=== PATIENT | female | born 1970 ===

== ENCOUNTER 2017-07-26 19:26 | Emergency (ER) | payer OTHER ==
[2017-07-26 19:39] VITALS: BP 119/71; PULSE 82; RESP 18; TEMP 98.6; O2SAT 99
[2017-07-26 20:07] LABS: RBC URINE 66 /hpf (0-3); URINE BILIRUBIN NEGATIVE (NEGATIVE); URINE BLOOD 2+ (NEGATIVE); URINE COLOR Yellow (YELLOW); URINE GLUCOSE (UA) NORMAL (Normal); URINE KETONE NEGATIVE (NEGATIVE); URINE LEUKOCYTE ESTERASE 3+ Leu/uL (Negative); URINE PROTEIN 2+ mg/dL (NEGATIVE); URINE UROBILINOGEN NORMAL mg/dL (0.2-1.0); WBC URINE 1212 /hpf (0-5)
--- NOTE | 2017-07-26 21:27 | C.PDOC ---
History Of Present Illness Kayla Gomes is a 47 year old female, with a past medical history of hypertension, who presents to the emergency department complaining of dysuria, frequency, and urgency onset for since last night. Patient states it burgos during urination. She denies any hematuria, shortness of breath, nausea, vomit or diarrhea. No further medical complaints. PMD: Eliseo Schmidt Time Seen by Provider: 07/26/17 20:18 Chief Complaint (Nursing): Female Genitourinary History Per: Patient History/Exam Limitations: no limitations Onset/Duration Of Symptoms: Days Current Symptoms Are (Timing): Still Present Quality Of Discomfort: Burning Associated Symptoms: Urinary Symptoms (frequency, dysuria). denies: Nausea, Vomiting, Diarrhea Past Medical History Reviewed: Historical Data, Nursing Documentation, Vital Signs Vital Signs: Last Vital Signs Temp 98.6 F 07/26/17 19:35 Pulse 82 07/26/17 19:35 Resp 18 07/26/17 19:35 BP 119/71 07/26/17 19:35 Pulse Ox 99 07/26/17 21:27 - Medical History PMH: HTN Denies: Chronic Kidney Disease Surgical History: No Surg Hx - [facility] Procedures LAPAROSCOPIC REPAIR UMBILICAL HERNIA W GRAFT OR PROSTHESIS (10/12/14) LAPAROSCOPIC ROBOTIC ASSISTED PROCEDURE (10/12/14) Family History: States: Unknown Family Hx - Social History Hx Tobacco Use: No Hx Alcohol Use: No Hx Substance Use: No - Immunization History Hx Tetanus Toxoid Vaccination: No Hx Influenza Vaccination: No Hx Pneumococcal Vaccination: No Review Of Systems Except As Marked, All Systems Reviewed And Found Negative. Respiratory: Negative for: Shortness of Breath Gastrointestinal: Negative for: Nausea, Vomiting, Diarrhea Genitourinary: Positive for: Dysuria, Frequency. Negative for: Hematuria Physical Exam - Physical Exam Appears: Well, Non-toxic, No Acute Distress Skin: Normal Color, Warm, Dry Head: Atraumatic, Normacephalic Eye(s): bilateral: Normal Inspection, PERRL, EOMI Neck: Normal, Normal ROM, Supple Cardiovascular: Rhythm Regular Respiratory: Normal Breath Sounds, No Accessory Muscle Use Gastrointestinal/Abdominal: Normal Exam, Soft, No Tenderness Back: Normal Inspection, No CVA Tenderness Extremity: Normal ROM, No Deformity, No Swelling Neurological/Psych: Oriented x3, Normal Speech Gait: Steady ED Course And Treatment O2 Sat by Pulse Oximetry: 99 (RA) Pulse Ox Interpretation: Normal Medical Decision Making Medical Decision Making: Initial Impression: UTI Initial plan: --Macrobid 100 mg PO --Pyridium 200 mg PO --Urine C&S --HCG, Qualitative urine --Urinalysis --reevaluation --Upon provider reevaluation patient is feeling better, is medically stable, and requires no further treatment in the ED at this time. Patient will be discharged with Rx for macrobid and pyridium. Counseling was provided and all questions were answered regarding diagnosis and need for follow up with PMD. There is agreement to discharge plan. Return if symptoms persist or worsen. Disposition - Disposition Referrals: Eliseo Schmidt MD [Primary Care Provider] - Disposition: HOME/ ROUTINE Disposition Time: 21:25 Condition: STABLE Additional Instructions: Follow up with PMD withi 1-2 days. Return to ED if feel worse. Prescriptions: Nitrofurantoin Macrocrystals [Macrobid] 1 cap PO BID #14 cap Phenazopyridine [Pyridium] 200 mg PO TID #15 tab Instructions: Urinary Tract Infection in Women (ED) Forms: [employer] (Spanish) Print Language: WOLOF - Clinical Impression Clinical Impression: UTI (urinary tract infection) - Scribe Statement Latrell Matt All medical record entries made by the Scribe were at my direction and personally dictated by me. I have reviewed the chart and agree that the record accurately reflects my personal performance of the history, physical exam, medical decision making, and the department course for this patient. I have also personally directed, reviewed, and agree with the discharge instructions and disposition.
== END 2017-07-26 21:31 | disposition home or self-care (01) ==
LOC: C.ER 19:26 → SUPCPDRO 19:26 → C.ER 21:31
DX: N39.0 Urinary tract infection, site not specified (principal)

== ENCOUNTER 2017-07-29 16:00 | Inpatient (IN) | payer OTHER ==
[2017-07-29 16:20] VITALS: BMI 27.1
--- NOTE | 2017-07-29 17:27 | C.PDOC ---
History Of Present Illness 47 yo female c/o fever for 3 days. PT notes that on 07/26/17 she was evaluated by [facility], treated with Macrobid and Pyridium. Pt notes she continues to have a fever but urinary frequency and dysuria have improved. Notes some pelvic pressure persists. Denies n,v, diarrhea, chest pain or sob. Time Seen by Provider: 07/29/17 17:18 Chief Complaint (Nursing): Fever History Per: Patient, Family History/Exam Limitations: no limitations Onset/Duration Of Symptoms: Days Current Symptoms Are (Timing): Still Present Associated Symptoms: Fever Past Medical History Vital Signs: Last Vital Signs Temp 101.9 F H 07/29/17 16:27 Pulse 111 H 07/29/17 16:20 Resp 18 07/29/17 16:20 BP 117/73 07/29/17 16:20 Pulse Ox 97 07/29/17 18:05 - Medical History PMH: HTN Denies: Chronic Kidney Disease - [facility] Procedures LAPAROSCOPIC REPAIR UMBILICAL HERNIA W GRAFT OR PROSTHESIS (10/12/14) LAPAROSCOPIC ROBOTIC ASSISTED PROCEDURE (10/12/14) Family History: States: Unknown Family Hx - Social History Hx Tobacco Use: No Hx Alcohol Use: No Hx Substance Use: No - Immunization History Hx Tetanus Toxoid Vaccination: No Hx Influenza Vaccination: No Hx Pneumococcal Vaccination: No Review Of Systems Except As Marked, All Systems Reviewed And Found Negative. Constitutional: Positive for: Fever, Chills Genitourinary: Positive for: Frequency. Negative for: Vaginal Discharge Physical Exam - Physical Exam Appears: Well, Non-toxic, No Acute Distress Skin: Normal Color, Warm, Dry Head: Atraumatic, Normacephalic Eye(s): bilateral: Normal Inspection, EOMI Nose: Normal Oral Mucosa: Moist Neck: Normal, Normal ROM, Supple Chest: Symmetrical Cardiovascular: Rhythm Regular Respiratory: Normal Breath Sounds Gastrointestinal/Abdominal: Normal Exam, Soft, No Tenderness Back: Normal Inspection, No CVA Tenderness, No Vertebral Tenderness Extremity: Normal ROM Neurological/Psych: Oriented x3, Normal Speech ED Course And Treatment - Laboratory Results Result Diagrams: 07/29/17 17:39 07/29/17 17:39 O2 Sat by Pulse Oximetry: 97 Progress Note: Previous records reviewed- micro noted to be ESBL +. Sensitivity reviewed. Gentamicin ordered. Case disucssed with Dr Araujo , agreed upon plan and treatment. Case discussed with Dr Martell, agreed upon plan and admission. Disposition - Disposition Disposition: HOSPITALIZED Disposition Time: 18:05 Condition: STABLE Forms: [facility] ([place]ian) - Clinical Impression Clinical Impression: Fever, UTI (urinary tract infection)
[2017-07-29] MEDS ORDERED: Sodium Chloride 0.9% 1,000 ML IV ONE (17:29)
[2017-07-29 17:48] LABS: MONO # 0.9 K/uL (0.0-0.8); MONO % 9.4 % (0.0-10.0)
[2017-07-29 17:48] LABS: HCG,QUALITATIVE URINE NEGATIVE (NEGATIVE)
[2017-07-29 17:53] LABS: SQUAMOUS EPITHIAL 18 /hpf (0-5); URINE BACTERIA FEW (<OCC); URINE BILIRUBIN NEGATIVE (NEGATIVE); URINE BLOOD NEGATIVE (NEGATIVE); URINE CLARITY Hazy (Clear); URINE COLOR Amber (YELLOW); URINE GLUCOSE (UA) NORMAL (Normal); URINE NITRATE POSITIVE (NEGATIVE); URINE PROTEIN NEGATIVE (NEGATIVE)
[2017-07-29 17:54] LABS: URINE LEUKOCYTE ESTERASE TRACE Leu/uL (Negative)
[2017-07-29 17:56] LABS: BASO % 0.3 % (0.0-2.0); EOS % 0.1 % (0.0-4.0); HEMOGLOBIN 11.8 g/dL (11.0-16.0); LYMPH # 0.9 K/uL (1.0-4.3); LYMPH % 9.5 % (20.0-40.0); MEAN CELL VOLUME 88.6 fL (81.0-99.0); MEAN CORPUSCULAR HEMOGLOBIN 29.7 pg (27.0-31.0); MEAN CORPUSCULAR HGB CONC 33.5 g/dL (33.0-37.0); MEAN PLATELET VOLUME 10.2 fL (7.2-11.7); NEUT % 80.7 % (50.0-75.0); PLATELET COUNT 193 K/uL (130-400); RBC 3.99 Mil/uL (3.80-5.20); RED CELL DISTRIBUTION WIDTH 12.4 % (11.5-14.5); WHITE BLOOD COUNT 9.9 K/uL (4.8-10.8)
[2017-07-29 18:01] LABS: ALB/GLOB RATIO 1.2 (1.0-2.1); ALBUMIN 3.8 g/dL (3.5-5.0); ALT/SGPT 21 U/L (9-52); AST/SGOT 23 U/L (14-36); BLOOD UREA NITROGEN 9 mg/dL (7-17); CALCIUM 8.1 mg/dl (8.6-10.4); GFR AFRICAN-AMERICAN > 60; GFR NON-AFRICAN AMERICAN > 60
[2017-07-29 18:56] LABS: LYMPHOCYTE 9 % (20-40); MONOCYTE 7 % (0-10); NEUTROPHIL 84 % (50-75); PLATELET ESTIMATE NORMAL (NORMAL); TOTAL CELLS COUNTED 100
[2017-07-29] MEDS ORDERED: Sodium Chloride 0.9% 1,000 ML IV SCH (19:45)
--- NOTE | 2017-07-29 19:54 | CP.PCM.HP ---
<Juwan Mistry - Last Filed: 07/29/17 23:29> History of Present Illness - History of Present Illness History of Present Illness: Medicine H/P CC: Pain on Urination HPI: Patient is a 47 year old female with a CC of pain on urination. The dysuria started on Friday of last week. She came to the ED on Friday where they gave her macrobid. Her culture came back today in which it grew ESBL sensitive to gent and tigecycline. The ED called the patient but did she did not answer. She came today because she has been having subjective fevers however her urinary symptoms have improved. She denies any blood in her urine. She complains that it "bothers her along her R. suprapubic area. Denies any back pain. Denies chills or diaphoresis. No chest pain or SOB. 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/ in All: None Present on Admission - Present on Admission Any Indicators Present on Admission: No Review of Systems - Review of Systems Review of Systems: Per HPI Past Patient History - Infectious Disease Hx of Infectious Diseases: None - Past Medical History & Family History Past Medical History?: No - Past Social History Smoking Status: Never Smoked - CARDIAC Hx Hypertension: Yes - PULMONARY Hx Respiratory Disorders: No - NEUROLOGICAL Hx Neurological Disorder: No - HEENT Other/Comment: Wears eyeglasses - RENAL Hx Chronic Kidney Disease: No - ENDOCRINE/METABOLIC Hx Endocrine Disorders: No - HEMATOLOGICAL/ONCOLOGICAL Hx Blood Disorders: No - INTEGUMENTARY Hx Dermatological Problems: No - MUSCULOSKELETAL/RHEUMATOLOGICAL Hx Musculoskeletal Disorders: No - GASTROINTESTINAL Hx Gastrointestinal Disorders: Yes (Umbilical hernia) - GENITOURINARY/GYNECOLOGICAL Hx Genitourinary Disorders: Yes Hx Urinary Tract Infection: Yes - PSYCHIATRIC Hx Substance Use: No - SURGICAL HISTORY Hx Surgeries: Yes Hx Hysterectomy: Yes (umbilical) Hx Tubal Ligation: Yes Other/Comment: Breast reduction 02/28/2014 - ANESTHESIA Hx Anesthesia: Yes Hx Anesthesia Reactions: No Hx Malignant Hyperthermia: No Meds Allergies/Adverse Reactions: Allergies Allergy/AdvReac Type Severity Reaction Status Date / Time No Known Allergies Allergy Verified 07/29/17 16:19 Physical Exam - Constitutional Appears: Well, Non-toxic, No Acute Distress - Head Exam Head Exam: ATRAUMATIC, NORMAL INSPECTION, NORMOCEPHALIC - Eye Exam Eye Exam: EOMI Pupil Exam: NORMAL ACCOMODATION - ENT Exam ENT Exam: Mucous Membranes Moist - Respiratory Exam Respiratory Exam: Clear to Auscultation Bilateral, NORMAL BREATHING PATTERN - Cardiovascular Exam Cardiovascular Exam: REGULAR RHYTHM - GI/Abdominal Exam GI & Abdominal Exam: Normal Bowel Sounds, Soft, Tenderness (mild tnederness in R. Suprapubic area). absent: Distended - Extremities Exam Extremities exam: Negative for: joint swelling, tenderness - Back Exam Back exam: absent: CVA tenderness (L), CVA tenderness (R) - Neurological Exam Neurological exam: Alert, Oriented x3 - Psychiatric Exam Psychiatric exam: Normal Affect, Normal Mood - Skin Skin Exam: Dry, Intact, Normal Color, Warm Results - Vital Signs Recent Vital Signs: Last Vital Signs Temp 98.5 F 07/29/17 18:36 Pulse 90 07/29/17 18:36 Resp 19 07/29/17 18:36 BP 101/66 07/29/17 18:36 Pulse Ox 99 07/29/17 18:36 - Labs Result Diagrams: 07/29/17 17:39 07/29/17 17:39 Labs: Laboratory Results - last 24 hr 07/29/17 07/29/17 07/29/17 17:39 17:39 17:42 WBC 9.9 D RBC 3.99 Hgb 11.8 Hct 35.3 MCV 88.6 D MCH 29.7 MCHC 33.5 RDW 12.4 Plt Count 193 MPV 10.2 Neut % (Auto) 80.7 H Lymph % (Auto) 9.5 L Terry % (Auto) 9.4 Eos % (Auto) 0.1 Baso % (Auto) 0.3 Neut # 8.0 H Lymph # 0.9 L Terry # 0.9 H Eos # 0.0 Baso # 0.0 Neutrophils % (Manual) 84 H Lymphocytes % (Manual) 9 L Monocytes % (Manual) 7 Platelet Estimate Normal Sodium 127 L Potassium 3.5 L Chloride 97 L Carbon Dioxide 25 Anion Gap 9 L BUN 9 Creatinine 0.6 L Est GFR ( Amer) > 60 Est GFR (Non-Af Amer) > 60 Random Glucose 130 H Calcium 8.1 L Total Bilirubin 0.7 AST 23 ALT 21 Alkaline Phosphatase 47 Total Protein 7.0 Albumin 3.8 Globulin 3.3 Albumin/Globulin Ratio 1.2 Urine Color Ariane Urine Clarity Hazy Urine pH 5.0 Ur Specific [place] 1.016 Urine Protein Negative Urine Glucose (UA) Normal Urine Ketones Trace Urine Blood Negative Urine Nitrate Positive H Urine Bilirubin Negative Urine Urobilinogen 4.0 H Ur Leukocyte Esterase Trace H Urine WBC (Auto) 7 H Urine RBC (Auto) 3 Ur Squamous Epith Cells 18 H Urine Bacteria Few H Urine HCG, Qual Negative Assessment & Plan (1) UTI due to extended-spectrum beta lactamase (ESBL) producing Escherichia coli Assessment and Plan: ID ([place]) UC sensitive to Gent (ATA 1) and Tigecycline (ATA <0.5) Gent 485mg IV Q24 Imipenem 1g IV Q8 NS @ 150 F/U CT A/P - R/O infected stone, ureteral dilitation Status: Acute Priority: High (2) Prophylactic measure Assessment and Plan: Protonix 40 PO QD SCD Status: Acute Priority: Low <Rocael Kruger P - Last Filed: 07/30/17 06:37> Results - Vital Signs Recent Vital Signs: Last Vital Signs Temp 99.3 F 07/30/17 00:02 Pulse 94 H 07/30/17 00:02 Resp 20 07/30/17 00:02 BP 106/67 07/30/17 00:02 Pulse Ox 94 L 07/30/17 00:02 - Labs Result Diagrams: 07/29/17 17:39 07/29/17 17:39 Labs: Laboratory Results - last 24 hr 07/29/17 07/29/17 07/29/17 17:39 17:39 17:42 WBC 9.9 D RBC 3.99 Hgb 11.8 Hct 35.3 MCV 88.6 D MCH 29.7 MCHC 33.5 RDW 12.4 Plt Count 193 MPV 10.2 Neut % (Auto) 80.7 H Lymph % (Auto) 9.5 L Terry % (Auto) 9.4 Eos % (Auto) 0.1 Baso % (Auto) 0.3 Neut # 8.0 H Lymph # 0.9 L Terry # 0.9 H Eos # 0.0 Baso # 0.0 Neutrophils % (Manual) 84 H Lymphocytes % (Manual) 9 L Monocytes % (Manual) 7 Platelet Estimate Normal Sodium 127 L Potassium 3.5 L Chloride 97 L Carbon Dioxide 25 Anion Gap 9 L BUN 9 Creatinine 0.6 L Est GFR ( Amer) > 60 Est GFR (Non-Af Amer) > 60 Random Glucose 130 H Calcium 8.1 L Total Bilirubin 0.7 AST 23 ALT 21 Alkaline Phosphatase 47 Total Protein 7.0 Albumin 3.8 Globulin 3.3 Albumin/Globulin Ratio 1.2 Urine Color Ariane Urine Clarity Hazy Urine pH 5.0 Ur Specific [place] 1.016 Urine Protein Negative Urine Glucose (UA) Normal Urine Ketones Trace Urine Blood Negative Urine Nitrate Positive H Urine Bilirubin Negative Urine Urobilinogen 4.0 H Ur Leukocyte Esterase Trace H Urine WBC (Auto) 7 H Urine RBC (Auto) 3 Ur Squamous Epith Cells 18 H Urine Bacteria Few H Urine HCG, Qual Negative Attending/Attestation - Attestation I have personally seen and examined this patient.: Yes I have fully participated in the care of the patient.: Yes I have reviewed all pertinent clinical information: Yes Notes (Text): Assessment C/o Diplopia, but no clinical weakness in eye movements, no defect in field of vision, patient has a plan to be transferred to rehab today could contribute to anxiety and functional symptoms Clinically no serotonin syn, lithium levels not high Leucocytosis not of clinical significance Bipolar, jatin, h/o cocaine and heroin abuse Tobacco abuse Plan Re eval in am Neurology consult Patient counselled about substance abuse
[2017-07-29 20:29] VITALS: RESP 20
[2017-07-29] MEDS: Sodium Chloride 0.9% 1,000 ML IV SCH (21:15)
[2017-07-29] MEDS ORDERED: SODIUM CHLORIDE 0.9% IVPB SCH (23:30)
[2017-07-29] MEDS ORDERED: IMIPENEM IVPB SCH (23:30)
[2017-07-29] MEDS ORDERED: Gentamicin 80 mg/2mL Inj. IVPB SCH (23:30)
[2017-07-29] MEDS ORDERED: CILASTATIN IVPB SCH (23:30)
[2017-07-29] MEDS: GENTAMICIN IVPB SCH (23:55)
[2017-07-29] MEDS: SODIUM CHLORIDE 0.9% IVPB SCH (23:55)
[2017-07-30] MEDS: Sodium Chloride 0.9% 1,000 ML IV SCH ×2 (04:00→10:05)
--- NOTE | 2017-07-30 07:23 | CP.PCM.PN ---
<Trace Van - Last Filed: 07/30/17 13:58> Subjective - Date & Time of Evaluation Date of Evaluation: 07/30/17 Time of Evaluation: 07:50 - Subjective Subjective: Medicine progress note for Dr. Martell Patient seen and examined at bedside. Patient complaining of mild suprapubic tenderness on the right side described as an annoyance. It is unrelated to when she urinates. Patient denies fever, chills, urinary symptoms, flank pain. Objective - Vital Signs/Intake and Output Vital Signs (last 24 hours): Temp Pulse Resp BP Pulse Ox 99.3 F 94 H 20 106/67 94 L 07/30/17 00:02 07/30/17 00:02 07/30/17 00:02 07/30/17 00:02 07/30/17 00:02 Intake and Output: 07/30/17 07/30/17 06:59 18:59 Intake Total 1820 Balance 1820 - Medications Medications: Current Medications Acetaminophen (Tylenol 325mg Tab) 650 mg PO Q6 PRN PRN Reason: Pain, moderate (4-7) Acetaminophen (Tylenol 325mg Tab) 650 mg PO Q6 PRN PRN Reason: Fever >100.4 F Sodium Chloride (Sodium Chloride 0.9%) 1,000 mls @ 150 mls/hr IV .Q6H40M [facility] Last Admin: 07/29/17 21:15 Dose: 150 mls/hr Gentamicin Sulfate 485 mg/ (Sodium Chloride) 262.125 mls @ 125 mls/hr IVPB Q24H [facility] Last Admin: 07/29/17 23:55 Dose: 125 mls/hr Imipenem/Cilastatin Sodium 1, (000 mg/ Sodium Chloride) 250 mls @ 100 mls/hr IVPB Q8H [facility] Last Admin: 07/30/17 01:38 Dose: 100 mls/hr Ondansetron HCl (Zofran Inj) 4 mg IVP Q6 PRN PRN Reason: Nausea/Vomiting Pantoprazole Sodium (Protonix Ec Tab) 40 mg PO DAILY [facility] Pneumococcal Polyvalent Vaccine (Pneumovax 23 Vaccine) 0.5 ml IM .ONCE ONE Stop: 07/30/17 10:01 - Labs Labs: 07/29/17 17:39 07/29/17 17:39 - Constitutional Appears: No Acute Distress - Head Exam Head Exam: ATRAUMATIC, NORMOCEPHALIC - Eye Exam Eye Exam: EOMI, Normal appearance - ENT Exam ENT Exam: Mucous Membranes Moist - Respiratory Exam Respiratory Exam: Clear to Ausculation Bilateral. absent: Rales, Rhonchi, Wheezes - Cardiovascular Exam Cardiovascular Exam: REGULAR RHYTHM, +S1, +S2 - GI/Abdominal Exam GI & Abdominal Exam: Soft, Normal Bowel Sounds. absent: Tenderness - Back Exam Back Exam: absent: CVA tenderness (L), CVA tenderness (R) - Neurological Exam Neurological Exam: Alert, Awake, Oriented x3 - Psychiatric Exam Psychiatric exam: Normal Affect, Normal Mood - Skin Skin Exam: Dry, Intact, Normal Color, Warm Assessment and Plan - Assessment and Plan (Free Text) Plan: UTI due to extended-spectrum beta lactamase (ESBL) producing Escherichia coli ID consult, Dr. Higgins, help appreciated Cultures sensitive to Gentamicin (ATA 1) and Tigecycline (ATA <0.5) Gentamycin 485mg IV Q24 Primaxin 1g IV Q8 NS @ 150 cc/hr F/U CT Abdomen/Pelvis F/u blood cultures A follow up UA and urine cultures for the morning of 07/31 were ordered. Prophylactic measure Protonix 40 PO QD SCDs Zofran 4 mg IV Q6 prn Case DW Dr. Jayshree Van PGY-1 <Vinayak Martell H - Last Filed: 07/30/17 14:41> Objective - Vital Signs/Intake and Output Vital Signs (last 24 hours): Temp Pulse Resp BP Pulse Ox 98.8 F 96 H 20 105/64 96 07/30/17 08:00 07/30/17 08:00 07/30/17 08:00 07/30/17 08:00 07/30/17 08:00 Intake and Output: 07/30/17 07/30/17 06:59 18:59 Intake Total 1820 1210 Balance 1820 1210 - Medications Medications: Current Medications Acetaminophen (Tylenol 325mg Tab) 650 mg PO Q6 PRN PRN Reason: Pain, moderate (4-7) Acetaminophen (Tylenol 325mg Tab) 650 mg PO Q6 PRN PRN Reason: Fever >100.4 F Sodium Chloride (Sodium Chloride 0.9%) 1,000 mls @ 150 mls/hr IV .Q6H40M [facility] Last Admin: 07/30/17 10:05 Dose: 150 mls/hr Gentamicin Sulfate 485 mg/ (Sodium Chloride) 262.125 mls @ 125 mls/hr IVPB Q24H [facility] Last Admin: 07/29/17 23:55 Dose: 125 mls/hr Imipenem/Cilastatin Sodium 1, (000 mg/ Sodium Chloride) 250 mls @ 100 mls/hr IVPB Q8H [facility] Last Admin: 07/30/17 08:43 Dose: 100 mls/hr Ondansetron HCl (Zofran Inj) 4 mg IVP Q6 PRN PRN Reason: Nausea/Vomiting Pantoprazole Sodium (Protonix Ec Tab) 40 mg PO DAILY [facility] Last Admin: 07/30/17 10:04 Dose: 40 mg - Labs Labs: 07/30/17 08:23 07/30/17 08:23 Attending/Attestation - Attestation I have personally seen and examined this patient.: Yes I have fully participated in the care of the patient.: Yes I have reviewed all pertinent clinical information, including history, physical exam and plan: Yes Notes (Text): Medical attending: Patient was seen and examined by me, agrees the above note by medical records field technician. As mentioned previously in the history and physical, the patient initially came to the emergency room for complaints of UTI like symptoms and was given Macrodantin to go home with. Unfortunately she continues to have ongoing fevers and came back to the emergency room The cultures that were taken when she initially came in showed that she had Escherichia coli that was ESBL positive. So was resistant to a lot of oral medications available to us and therefore she was admitted. He overnight team placed her on IV Primaxin and IV gentamicin. She reports that her symptoms are much better today. She had very little burning urination she reported she denied seen blood in her urine. We will recheck UA and UC+S tommorow. thank you Vinayak Martell
[2017-07-30 08:37] LABS: BASO % 0.2 % (0.0-2.0); EOS % 0.3 % (0.0-4.0); HEMOGLOBIN 11.8 g/dL (11.0-16.0); LYMPH # 1.9 K/uL (1.0-4.3); LYMPH % 22.7 % (20.0-40.0); MEAN CELL VOLUME 88.8 fL (81.0-99.0); MEAN CORPUSCULAR HEMOGLOBIN 29.8 pg (27.0-31.0); MEAN CORPUSCULAR HGB CONC 33.6 g/dL (33.0-37.0); MEAN PLATELET VOLUME 10.6 fL (7.2-11.7); MONO # 1.1 K/uL (0.0-0.8); MONO % 13.4 % (0.0-10.0); NEUT # 5.4 K/uL (1.8-7.0); NEUT % 63.4 % (50.0-75.0); RBC 3.95 Mil/uL (3.80-5.20); RED CELL DISTRIBUTION WIDTH 12.6 % (11.5-14.5); WHITE BLOOD COUNT 8.4 K/uL (4.8-10.8)
[2017-07-30 08:45] LABS: ALB/GLOB RATIO 1.1 (1.0-2.1); ALBUMIN 3.5 g/dL (3.5-5.0); ALT/SGPT 21 U/L (9-52); AST/SGOT 17 U/L (14-36); BLOOD UREA NITROGEN 10 mg/dL (7-17); CALCIUM 7.9 mg/dl (8.6-10.4); GFR AFRICAN-AMERICAN > 60; GFR NON-AFRICAN AMERICAN > 60
[2017-07-30] MEDS ORDERED: Pneumococcal 23-Valent Vaccine IM ONE (10:00)
[2017-07-30] MEDS: Pantoprazole 40 mg EC Tab PO SCH (10:04)
--- NOTE | 2017-07-30 11:15 | CT ---
PROCEDURE: CT Abdomen and Pelvis without Oral or IV contrast. HISTORY: R/O infected stone/hydronephrosis/ureteral diliati COMPARISON: None available TECHNIQUE: Contiguous axial images of the abdomen and pelvis. No oral or IV contrast administered. Coronal and Sagittal reformats generated and reviewed. Radiation dose: Total exam DLP = 356.05 mGy-cm. This CT exam was performed using one or more of the following dose reduction techniques: Automated exposure control, adjustment of the mA and/or kV according to patient size, and/or use of iterative reconstruction technique. FINDINGS: There is limited evaluation of the solid organs without the administration of IV contrast. LOWER THORAX: Bibasilar atelectasis/ infiltrates. No visible pleural effusion or pneumothorax. Small hiatal hernia/distal esophageal wall thickening. LIVER: Scattered hepatic calcifications, likely granulomas. GALLBLADDER AND BILE DUCTS: Unremarkable unenhanced appearance. PANCREAS: Unremarkable unenhanced appearance. SPLEEN: Unremarkable unenhanced appearance. ADRENALS: Unremarkable unenhanced appearance. KIDNEYS AND URETERS: Mild right perinephric stranding. No hydronephrosis or obstructing renal calculus. BLADDER: The urinary bladder appears unremarkable. REPRODUCTIVE: Uterus is present. Question presence of uterine fibroid. APPENDIX: The presumed appendix appears within normal limits of caliber. No secondary signs of acute appendicitis. BOWEL: The stomach is nondistended. Lack of oral contrast limits evaluation for bowel pathology. The bowel loops appear within normal limits of caliber without evidence of intestinal obstruction. Moderate constipation. PERITONEUM: No significant free fluid. No definite free air. LYMPH NODES: No bulky lymphadenopathy identified. VASCULATURE: No aortic aneurysm. BONES: No acute osseous abnormality is detected. OTHER FINDINGS: None. IMPRESSION: Mild right perinephric stranding. No obstructing calculus or hydronephrosis identified. Pyelonephritis cannot be excluded on noncontrast study. Moderate constipation. Additional incidental findings as above.
[2017-07-30 13:38] LABS: SQUAMOUS EPITHIAL 2 /hpf (0-5); URINE BACTERIA RARE (<OCC); URINE BILIRUBIN NEGATIVE (NEGATIVE); URINE BLOOD NEGATIVE (NEGATIVE); URINE CLARITY Clear (Clear); URINE COLOR Yellow (YELLOW); URINE GLUCOSE (UA) 1+ mg/dL (Normal); URINE LEUKOCYTE ESTERASE NEG Leu/uL (Negative); URINE NITRATE NEGATIVE (NEGATIVE); URINE PROTEIN NEGATIVE (NEGATIVE); URINE UROBILINOGEN NORMAL mg/dL (0.2-1.0)
--- NOTE | 2017-07-30 17:35 | CP.PCM.CON ---
History of Present Illness - History of Present Illness History of Present Illness: 47 year old female with a CC of pain on urination. The dysuria started on Friday of last week. She came to the ED on Friday where they gave her macrobid. Her culture came back today in which it grew ESBL sensitive to gent and tigecycline. er. She came today because she has been having subjective fevers however her urinary symptoms have improved. started on empiric imipenem + Genta on isolation PMH: Depression PSH: Hernia repair, breast reduction FH: None SH: denies smoking, drinking, Review of Systems - Constitutional Constitutional: As Per HPI - EENT Eyes: absent: As Per HPI, Blind Spots, Blurred Vision, Change in Vision, Decreased Night Vision, Diplopia, Discharge, Dry Eye, Exophthalmos, Floaters, Irritation, Itchy Eyes, Loss of Peripheral Vision, Pain, Photophobia, Requires Corrective Lenses, Sees Flashes, Spots in Vision, Tunnel Vision, Other Visual Disturbances, Loss of Vision, Other Nose/Mouth/Throat: absent: As Per HPI, Epistaxis, Nasal Congestion, Nasal Discharge, Nasal Obstruction, Nasal Trauma, Nose Pain, Post Nasal Drip, Sinus Pain, Sinus Pressure, Bleeding Gums, Change in Voice, Dental Pain, Dry Mouth, Dysphagia, Halitosis, Hoarsness, Lip Swelling, Mouth Lesions, Mouth Pain, Odynophagia, Sore Throat, Throat Swelling, Tongue Swelling, Facial Pain, Neck Pain, Neck Mass, Other - Breasts Breasts: absent: As Per HPI, Change in Shape, Mass, Pain, Nipple Discharge, Nipple Inversion, Skin Changes, Swelling, Other - Cardiovascular Cardiovascular: absent: As Per HPI, Acrocyanosis, Chest Pain, Chest Pain at Rest , Chest Pain with Activity, Claudication, Diaphoresis, Dyspnea, Dyspnea on Exertion, Edema, Irregular Heart Rhythm, Pain Radiating to Arm/Neck/Jaw, Leg Edema, Leg Ulcers, Lightheadedness, Orthopnea, Palpitations, Paroxysmal Nocturnal Dyspnea, Pedal Edema, Radiating Pain, Rapid Heart Rate, Slow Heart Rate, Syncope, Other - Respiratory Respiratory: absent: As Per HPI, Cough, Dyspnea, Hemoptysis, Dyspnea on Exertion , Wheezing, Snoring, Stridor, Pain on Inspiration, Chest Congestion, Excessive Mucous Production, Change in Mucous Color, Pain with Coughing, Other - Gastrointestinal Gastrointestinal: absent: As Per HPI, Abdominal Pain, Belching, Bloating, Change in Bowel Habits, Change in Stool Character, Coffee Ground Emesis, Constipation, Cramping, Diarrhea, Dyspepsia, Dysphagia, Early Satiety, Excessive Flatus, Fecal Incontinence, Heartburn, Hematemesis, Hematochezia, Loose Stools, Melena, Nausea, Odynophagia, Temesmus, Vomiting, Other - Reproductive: Female Reproductive:Female: absent: As Per HPI, Amenorrhea, Amenorrhea/ Control, Currently Menstual, Cycle <21 Days, Cycle >35 Days, Cycle Variable, Menses 1-7 Days, Menses >/= 8 Days, Menses Variable, Cycle > 4 Weeks Between, No Menses for 6 Months, Heavy Menses, Light Menses, Normal Menses, Spotting Between Cycles , S/P Hysterectomy, Menopausal, Post Menopausal, Premenarche, Abnormal Vaginal Bleeding, Dysmenorrhea, Dyspareunia, Genital Lesions, Genital Pruritis, Pelvic Pain, Prolapse Symptoms, Sexual Dysfunction, Vaginal Discharge, Vaginal Dryness , Vaginal Odor, Vaginal Pruritis, Other - Menstruation Menstruation: absent: As Per HPI, Amenorrhea, Amenorrhea/ Control, Currently Menstual, Cycle <21 Days, Cycle >35 Days, Cycle Variable, Menses 1-7 Days, Menses >/= 8 Days, Menses Variable, Cycle > 4 Weeks Between, No Menses for 6 Months, Heavy Menses, Light Menses, Normal Menses, Spotting Between Cycles , S/P Hysterectomy, Menopausal, Post Menopausal, Premenarche, Abnormal Vaginal Bleeding, Dysmenorrhea, Other - Musculoskeletal Musculoskeletal: absent: As Per HPI, Abnormal Gait, Arthralgias, Atrophy, Back Pain, Deformity, Joint Swelling, Limited Range of Motion, Loss of Height, Muscle Cramps, Muscle Weakness, Myalgias, Neck Pain, Numbness, Radiating Pain into Limb, Stiffness, Tingling, Other - Integumentary Integumentary: absent: As Per HPI, Acne, Alopecia, Bleeding Lesions, Change in Hair, Change in Nails, Change in Pigmentation, Changing Lesions, Dry Skin, Erythema, Furuncle, Hirsutism, Lesions, New Lesions, Non-Healing Lesions, Photosensitivity, Pruritus, Rash, Skin Pain, Skin Ulcer, Sores, Striae, Swelling , Unusual Bruising, Wounds, Jaundice, Other - Neurological Neurological: absent: As Per HPI, Abnormal Gait, Abnormal Hearing, Abnormal Movements, Abnormal Speech, Behavioral Changes, Burning Sensations, Confusion, Convulsions, Disequilibrium, Dizziness, Numbness, Focal Weakness, Frequent Falls , Headaches, Lack of Coordination, Loss of Vision, Memory Loss, Paresthesias, Radicular Pain, Restless Legs, Sensory Deficit, Syncope, Tingling, Tremor, Vertigo, Weakness, Other Visual Disturbances, Other - Psychiatric Psychiatric: absent: As Per HPI, Abnormal Sleep Pattern, Anhedonia, Anxiety, Auditory Hallucinations, Behavioral Changes, Change in Appetite, Change in Libido, Confusion, Depression, Difficulty Concentrating, Hallucinations, Homicidal Ideation, Hopelessness, Irritability, Memory Loss, Mood Swings, Panic Attacks, Paranoia, Suicidal Ideation, Visual Hallucinations, Tactile Hallucinations, Other - Endocrine Endocrine: absent: As Per HPI, Change in Body Appearance, Change in Libido, Cold Intolorance, Deepening of Voice, Excessive Sweating, Fatigue, Flushing, Heat Intolorance, Increase in Ring/Shoe/Hat Size, Palpitations, Polydipsia, Polyphagia, Polyuria, Other - Hematologic/Lymphatic Hematologic: absent: As Per HPI, Easy Bleeding, Easy Bruising, Lymphadenopathy, Other Past Patient History - Infectious Disease Hx of Infectious Diseases: None - Past Medical History & Family History Past Medical History?: No - Past Social History Smoking Status: Never Smoked - CARDIAC Hx Hypertension: Yes - PULMONARY Hx Respiratory Disorders: No - NEUROLOGICAL Hx Neurological Disorder: No - HEENT Other/Comment: Wears eyeglasses - RENAL Hx Chronic Kidney Disease: No - ENDOCRINE/METABOLIC Hx Endocrine Disorders: No - HEMATOLOGICAL/ONCOLOGICAL Hx Blood Disorders: No - INTEGUMENTARY Hx Dermatological Problems: No - MUSCULOSKELETAL/RHEUMATOLOGICAL Hx Musculoskeletal Disorders: No - GASTROINTESTINAL Hx Gastrointestinal Disorders: Yes (Umbilical hernia) - GENITOURINARY/GYNECOLOGICAL Hx Genitourinary Disorders: Yes Hx Urinary Tract Infection: Yes - PSYCHIATRIC Hx Substance Use: No - SURGICAL HISTORY Hx Surgeries: Yes Hx Hysterectomy: Yes (umbilical) Hx Tubal Ligation: Yes Other/Comment: Breast reduction 02/28/2014 - ANESTHESIA Hx Anesthesia: Yes Hx Anesthesia Reactions: No Hx Malignant Hyperthermia: No Meds Allergies/Adverse Reactions: Allergies Allergy/AdvReac Type Severity Reaction Status Date / Time No Known Allergies Allergy Verified 07/29/17 16:19 - Medications Medications: Current Medications Acetaminophen (Tylenol 325mg Tab) 650 mg PO Q6 PRN PRN Reason: Pain, moderate (4-7) Acetaminophen (Tylenol 325mg Tab) 650 mg PO Q6 PRN PRN Reason: Fever >100.4 F Sodium Chloride (Sodium Chloride 0.9%) 1,000 mls @ 150 mls/hr IV .Q6H40M [facility] Last Admin: 07/30/17 10:05 Dose: 150 mls/hr Gentamicin Sulfate 485 mg/ (Sodium Chloride) 262.125 mls @ 125 mls/hr IVPB Q24H [facility] Last Admin: 07/29/17 23:55 Dose: 125 mls/hr Imipenem/Cilastatin Sodium 1, (000 mg/ Sodium Chloride) 250 mls @ 100 mls/hr IVPB Q8H [facility] Last Admin: 07/30/17 16:20 Dose: 100 mls/hr Ondansetron HCl (Zofran Inj) 4 mg IVP Q6 PRN PRN Reason: Nausea/Vomiting Pantoprazole Sodium (Protonix Ec Tab) 40 mg PO DAILY [facility] Last Admin: 07/30/17 10:04 Dose: 40 mg Physical Exam - Constitutional Appears: Non-toxic - Head Exam Head Exam: NORMOCEPHALIC - Eye Exam Eye Exam: PERRL. absent: Scleral icterus - ENT Exam ENT Exam: Mucous Membranes Dry, Normal External Ear Exam - Neck Exam Neck exam: Negative for: Lymphadenopathy - Respiratory Exam Respiratory Exam: Decreased Breath Sounds, Clear to Auscultation Bilateral - Cardiovascular Exam Cardiovascular Exam: REGULAR RHYTHM - GI/Abdominal Exam GI & Abdominal Exam: Diminished Bowel Sounds, Soft. absent: Tenderness - Rectal Exam Rectal Exam: Deferred - Exam Exam: NORMAL INSPECTION - Extremities Exam Extremities exam: Positive for: pedal pulses present. Negative for: calf tenderness, pedal edema, tenderness - Back Exam Back exam: absent: CVA tenderness (L), CVA tenderness (R) - Neurological Exam Neurological exam: Alert, CN II-XII Intact, Oriented x3, Reflexes Normal - Psychiatric Exam Psychiatric exam: Normal Mood - Skin Skin Exam: Dry Results - Vital Signs Recent Vital Signs: Last Vital Signs Temp 98.1 F 07/30/17 16:04 Pulse 91 H 07/30/17 16:04 Resp 20 07/30/17 16:04 BP 103/64 07/30/17 16:04 Pulse Ox 99 07/30/17 16:04 - Labs Result Diagrams: 07/30/17 08:23 07/30/17 08:23 Labs: Laboratory Results - last 24 hr 07/29/17 07/29/17 07/29/17 17:39 17:39 17:42 WBC 9.9 D RBC 3.99 Hgb 11.8 Hct 35.3 MCV 88.6 D MCH 29.7 MCHC 33.5 RDW 12.4 Plt Count 193 MPV 10.2 Neut % (Auto) 80.7 H Lymph % (Auto) 9.5 L [place] % (Auto) 9.4 Eos % (Auto) 0.1 Baso % (Auto) 0.3 Neut # 8.0 H Lymph # 0.9 L [place] # 0.9 H Eos # 0.0 Baso # 0.0 Neutrophils % (Manual) 84 H Lymphocytes % (Manual) 9 L Monocytes % (Manual) 7 Platelet Estimate Normal Sodium 127 L Potassium 3.5 L Chloride 97 L Carbon Dioxide 25 Anion Gap 9 L BUN 9 Creatinine 0.6 L Est GFR ( Amer) > 60 Est GFR (Non-Af Amer) > 60 Random Glucose 130 H Calcium 8.1 L Total Bilirubin 0.7 AST 23 ALT 21 Alkaline Phosphatase 47 Total Protein 7.0 Albumin 3.8 Globulin 3.3 Albumin/Globulin Ratio 1.2 Urine Color Ariane Urine Clarity Hazy Urine pH 5.0 Ur Specific Ward 1.016 Urine Protein Negative Urine Glucose (UA) Normal Urine Ketones Trace Urine Blood Negative Urine Nitrate Positive H Urine Bilirubin Negative Urine Urobilinogen 4.0 H Ur Leukocyte Esterase Trace H Urine WBC (Auto) 7 H Urine RBC (Auto) 3 Ur Squamous Epith Cells 18 H Urine Bacteria Few H Urine HCG, Qual Negative 07/30/17 07/30/17 07/30/17 08:23 08:23 13:21 WBC 8.4 RBC 3.95 Hgb 11.8 Hct 35.1 MCV 88.8 MCH 29.8 MCHC 33.6 RDW 12.6 Plt Count 187 MPV 10.6 Neut % (Auto) 63.4 Lymph % (Auto) 22.7 [place] % (Auto) 13.4 H Eos % (Auto) 0.3 Baso % (Auto) 0.2 Neut # 5.4 Lymph # 1.9 [place] # 1.1 H Eos # 0.0 Baso # 0.0 Neutrophils % (Manual) Lymphocytes % (Manual) Monocytes % (Manual) Platelet Estimate Sodium 133 Potassium 3.6 Chloride 104 Carbon Dioxide 23 Anion Gap 9 L BUN 10 Creatinine 0.6 L Est GFR ( Amer) > 60 Est GFR (Non-Af Amer) > 60 Random Glucose 113 H Calcium 7.9 L Total Bilirubin 0.8 AST 17 ALT 21 Alkaline Phosphatase 47 Total Protein 6.6 Albumin 3.5 Globulin 3.1 Albumin/Globulin Ratio 1.1 Urine Color Yellow Urine Clarity Clear Urine pH 5.0 Ur Specific Ward 1.019 Urine Protein Negative Urine Glucose (UA) 1+ Urine Ketones Trace Urine Blood Negative Urine Nitrate Negative Urine Bilirubin Negative Urine Urobilinogen Normal Ur Leukocyte Esterase Neg Urine WBC (Auto) 6 H Urine RBC (Auto) 2 Ur Squamous Epith Cells 2 Urine Bacteria Rare Urine HCG, Qual Assessment & Plan (1) Fever Status: Acute (2) UTI (urinary tract infection) Status: Acute (3) UTI due to extended-spectrum beta lactamase (ESBL) producing Escherichia coli Status: Acute Priority: High - Assessment and Plan (Free Text) Assessment: 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
[2017-07-31] MEDS: Sodium Chloride 0.9% 1,000 ML IV SCH ×4 (00:14→21:07)
[2017-07-31] MEDS: SODIUM CHLORIDE 0.9% IVPB SCH (03:21)
[2017-07-31] MEDS: GENTAMICIN IVPB SCH (03:21)
--- NOTE | 2017-07-31 06:58 | CP.PCM.PN ---
<Trace Van - Last Filed: 07/31/17 11:09> Subjective - Date & Time of Evaluation Date of Evaluation: 07/31/17 Time of Evaluation: 07:50 - Subjective Subjective: Medicine progress note for Dr. Martell Patient seen and examined at bedside. Patient states that her right sided suprapubic tenderness that is described as an annoyance is improved today. Patient denies urinary symptoms and flank pain at this time. Objective - Vital Signs/Intake and Output Vital Signs (last 24 hours): Temp Pulse Resp BP Pulse Ox 98.5 F 89 20 105/67 98 07/30/17 23:42 07/30/17 23:42 07/30/17 23:42 07/30/17 23:42 07/30/17 23:42 Intake and Output: 07/30/17 07/31/17 18:59 06:59 Intake Total 1210 1450 Balance 1210 1450 - Medications Medications: Current Medications Acetaminophen (Tylenol 325mg Tab) 650 mg PO Q6 PRN PRN Reason: Pain, moderate (4-7) Acetaminophen (Tylenol 325mg Tab) 650 mg PO Q6 PRN PRN Reason: Fever >100.4 F Sodium Chloride (Sodium Chloride 0.9%) 1,000 mls @ 150 mls/hr IV .Q6H40M [facility] Last Admin: 07/31/17 06:41 Dose: Not Given Gentamicin Sulfate 485 mg/ (Sodium Chloride) 262.125 mls @ 125 mls/hr IVPB Q24H [facility] Last Admin: 07/31/17 03:21 Dose: 125 mls/hr Imipenem/Cilastatin Sodium 1, (000 mg/ Sodium Chloride) 250 mls @ 100 mls/hr IVPB Q8H [facility] Last Admin: 07/31/17 00:15 Dose: 100 mls/hr Ondansetron HCl (Zofran Inj) 4 mg IVP Q6 PRN PRN Reason: Nausea/Vomiting Pantoprazole Sodium (Protonix Ec Tab) 40 mg PO DAILY [facility] Last Admin: 07/30/17 10:04 Dose: 40 mg - Labs Labs: 07/30/17 08:23 07/30/17 08:23 - Constitutional Appears: No Acute Distress - Head Exam Head Exam: ATRAUMATIC, NORMOCEPHALIC - Eye Exam Eye Exam: EOMI, Normal appearance - ENT Exam ENT Exam: Mucous Membranes Moist - Respiratory Exam Respiratory Exam: Clear to Ausculation Bilateral. absent: Rales, Rhonchi, Wheezes - Cardiovascular Exam Cardiovascular Exam: REGULAR RHYTHM, +S1, +S2 - GI/Abdominal Exam GI & Abdominal Exam: Soft, Normal Bowel Sounds. absent: Tenderness - Extremities Exam Extremities Exam: absent: Pedal Edema, Tenderness - Back Exam Back Exam: absent: CVA tenderness (L), CVA tenderness (R) - Neurological Exam Neurological Exam: Alert, Awake, Oriented x3 - Psychiatric Exam Psychiatric exam: Normal Affect, Normal Mood - Skin Skin Exam: Dry, Intact, Normal Color, Warm Assessment and Plan - Assessment and Plan (Free Text) Plan: UTI due to extended-spectrum beta lactamase (ESBL) producing Escherichia coli ID consult, Dr. Higgins, help appreciated Cultures sensitive to Gentamicin (ATA 1) and Tigecycline (ATA <0.5) Gentamycin 485mg IV Q24 Primaxin 1g IV Q8 NS @ 150 cc/hr Repeat UA shows no nitrates or leukocyte esterase F/u blood cultures F/u urine cultures CT abdomen/pelvis w.o. contrast: Mild right perinephric stranding. No obstructing calculus or hydronephrosis identified. Pyelonephritis cannot be excluded on noncontrast study. Moderate constipation. Prophylactic measure Protonix 40 PO QD SCDs Zofran 4 mg IV Q6 prn Colace 100 mg PO BID Case DW Dr. Jayshree Van PGY-1 <Vinayak Martell - Last Filed: 07/31/17 13:30> Objective - Vital Signs/Intake and Output Vital Signs (last 24 hours): Temp Pulse Resp BP Pulse Ox 98.4 F 82 20 97/60 L 99 07/31/17 07:35 07/31/17 07:35 07/31/17 07:35 07/31/17 07:35 07/31/17 08:20 Intake and Output: 07/31/17 07/31/17 06:59 18:59 Intake Total 1450 Balance 1450 - Medications Medications: Current Medications Acetaminophen (Tylenol 325mg Tab) 650 mg PO Q6 PRN PRN Reason: Pain, moderate (4-7) Acetaminophen (Tylenol 325mg Tab) 650 mg PO Q6 PRN PRN Reason: Fever >100.4 F Docusate Sodium (Colace) 100 mg PO BID [facility] Sodium Chloride (Sodium Chloride 0.9%) 1,000 mls @ 150 mls/hr IV .Q6H40M [facility] Last Admin: 07/31/17 06:41 Dose: Not Given Gentamicin Sulfate 485 mg/ (Sodium Chloride) 262.125 mls @ 125 mls/hr IVPB Q24H [facility] Last Admin: 07/31/17 03:21 Dose: 125 mls/hr Imipenem/Cilastatin Sodium 1, (000 mg/ Sodium Chloride) 250 mls @ 100 mls/hr IVPB Q8H [facility] Last Admin: 07/31/17 08:18 Dose: 100 mls/hr Ondansetron HCl (Zofran Inj) 4 mg IVP Q6 PRN PRN Reason: Nausea/Vomiting Pantoprazole Sodium (Protonix Ec Tab) 40 mg PO DAILY [facility] Last Admin: 07/31/17 09:35 Dose: 40 mg - Labs Labs: 07/31/17 07:37 07/31/17 07:37 Attending/Attestation - Attestation I have personally seen and examined this patient.: Yes I have fully participated in the care of the patient.: Yes I have reviewed all pertinent clinical information, including history, physical exam and plan: Yes Notes (Text): Medical Attending: Patient was seen and examined by me. Agree with the above note by the resident The patient was out of bed, she reported very minimal pain. She reports she feels better She had a CT of the abdomen and pelvis the other day and it suggested possible nephritic stranding over the right side however she did not have pain with palpation of the left (or right) flanks on our examination Reapting the UA and UCS She remains on IV primaxin as well as IV gentamicin at this moment thank you Vinayak Martell
[2017-07-31 07:49] LABS: BASO % 0.3 % (0.0-2.0); EOS # 0.2 K/uL (0.0-0.7); EOS % 2.6 % (0.0-4.0); HEMOGLOBIN 11.5 g/dL (11.0-16.0); LYMPH # 2.2 K/uL (1.0-4.3); LYMPH % 35.4 % (20.0-40.0); MEAN CELL VOLUME 87.9 fL (81.0-99.0); MEAN CORPUSCULAR HEMOGLOBIN 30.2 pg (27.0-31.0); MEAN CORPUSCULAR HGB CONC 34.4 g/dL (33.0-37.0); MEAN PLATELET VOLUME 10.3 fL (7.2-11.7); MONO # 0.8 K/uL (0.0-0.8); MONO % 12.7 % (0.0-10.0); RBC 3.79 Mil/uL (3.80-5.20); RED CELL DISTRIBUTION WIDTH 12.6 % (11.5-14.5); WHITE BLOOD COUNT 6.2 K/uL (4.8-10.8)
[2017-07-31 08:46] LABS: ALB/GLOB RATIO 1.1 (1.0-2.1); ALBUMIN 3.2 g/dL (3.5-5.0); ALT/SGPT 26 U/L (9-52); AST/SGOT 20 U/L (14-36); BLOOD UREA NITROGEN 8 mg/dL (7-17); GFR AFRICAN-AMERICAN > 60; GFR NON-AFRICAN AMERICAN > 60
[2017-07-31] MEDS: Pantoprazole 40 mg EC Tab PO SCH (09:35)
--- NOTE | 2017-07-31 13:18 | CARD ---
APPROVED REPORT EKG Measurement Heart [id number] ND [id number] <Conclusion> Normal sinus rhythm Normal Electrocardiogram
--- NOTE | 2017-07-31 17:24 | CP.PCM.PN ---
Subjective - Date & Time of Evaluation Date of Evaluation: 07/31/17 Time of Evaluation: 10:00 - Subjective Subjective: IMPROVING BLOOD C/S NEG THUS FAR UNCLEAR TO RISK FOR ESBL ? DENIES MULTIPLE ANTIBIOTICS OUT PT Objective - Vital Signs/Intake and Output Vital Signs (last 24 hours): Temp Pulse Resp BP Pulse Ox 98.2 F 73 20 99/62 L 100 07/31/17 15:00 07/31/17 15:00 07/31/17 15:00 07/31/17 15:00 07/31/17 15:00 Intake and Output: 07/31/17 07/31/17 06:59 18:59 Intake Total 1450 1210 Balance 1450 1210 - Medications Medications: Current Medications Acetaminophen (Tylenol 325mg Tab) 650 mg PO Q6 PRN PRN Reason: Pain, moderate (4-7) Acetaminophen (Tylenol 325mg Tab) 650 mg PO Q6 PRN PRN Reason: Fever >100.4 F Docusate Sodium (Colace) 100 mg PO BID [facility] Sodium Chloride (Sodium Chloride 0.9%) 1,000 mls @ 150 mls/hr IV .Q6H40M [facility] Last Admin: 07/31/17 06:41 Dose: Not Given Gentamicin Sulfate 485 mg/ (Sodium Chloride) 262.125 mls @ 125 mls/hr IVPB Q24H [facility] Last Admin: 07/31/17 03:21 Dose: 125 mls/hr Imipenem/Cilastatin Sodium 1, (000 mg/ Sodium Chloride) 250 mls @ 100 mls/hr IVPB Q8H [facility] Last Admin: 07/31/17 16:39 Dose: 100 mls/hr Ondansetron HCl (Zofran Inj) 4 mg IVP Q6 PRN PRN Reason: Nausea/Vomiting Pantoprazole Sodium (Protonix Ec Tab) 40 mg PO DAILY [facility] Last Admin: 07/31/17 09:35 Dose: 40 mg - Labs Labs: 07/31/17 07:37 07/31/17 07:37 - Constitutional Appears: Non-toxic - Head Exam Head Exam: NORMOCEPHALIC - Eye Exam Eye Exam: PERRL - ENT Exam ENT Exam: Mucous Membranes Dry - Neck Exam Neck Exam: absent: Lymphadenopathy - Respiratory Exam Respiratory Exam: Decreased Breath Sounds - Cardiovascular Exam Cardiovascular Exam: REGULAR RHYTHM - GI/Abdominal Exam GI & Abdominal Exam: Distended, Soft Assessment and Plan (1) Fever Status: Acute (2) UTI (urinary tract infection) Status: Acute (3) UTI due to extended-spectrum beta lactamase (ESBL) producing Escherichia coli Status: Acute
[2017-08-01] MEDS: GENTAMICIN IVPB SCH ×2 (01:30→23:15)
[2017-08-01] MEDS: SODIUM CHLORIDE 0.9% IVPB SCH ×2 (01:30→23:15)
[2017-08-01] MEDS: Sodium Chloride 0.9% 1,000 ML IV SCH ×4 (02:30→23:52)
[2017-08-01 08:39] LABS: BASO % 0.3 % (0.0-2.0); EOS # 0.2 K/uL (0.0-0.7); EOS % 2.7 % (0.0-4.0); LYMPH # 1.9 K/uL (1.0-4.3); LYMPH % 33.3 % (20.0-40.0); MEAN CORPUSCULAR HEMOGLOBIN 30.3 pg (27.0-31.0); MEAN CORPUSCULAR HGB CONC 34.5 g/dL (33.0-37.0); MEAN PLATELET VOLUME 10.7 fL (7.2-11.7); MONO # 0.6 K/uL (0.0-0.8); MONO % 10.5 % (0.0-10.0); NEUT % 53.2 % (50.0-75.0); RBC 3.63 Mil/uL (3.80-5.20); RED CELL DISTRIBUTION WIDTH 12.1 % (11.5-14.5); WHITE BLOOD COUNT 5.7 K/uL (4.8-10.8)
[2017-08-01 08:53] LABS: ALB/GLOB RATIO 1.1 (1.0-2.1); ALBUMIN 3.1 g/dL (3.5-5.0); ALT/SGPT 29 U/L (9-52); AST/SGOT 25 U/L (14-36); BLOOD UREA NITROGEN 10 mg/dL (7-17); CALCIUM 7.9 mg/dl (8.6-10.4); GFR AFRICAN-AMERICAN > 60; GFR NON-AFRICAN AMERICAN > 60
--- NOTE | 2017-08-01 09:32 | CP.PCM.PN ---
Subjective - Date & Time of Evaluation Date of Evaluation: 08/01/17 Time of Evaluation: 07:15 - Subjective Subjective: Medicine progress note for Dr. Martell Patient seen and examined at bedside. Patient has no acute complaints today and is wondering what her most recent urine cultures show. Denies urinary symptoms. Objective - Vital Signs/Intake and Output Vital Signs (last 24 hours): Temp Pulse Resp BP Pulse Ox 98.1 F 81 20 103/64 98 08/01/17 08:05 08/01/17 08:05 08/01/17 08:05 08/01/17 08:05 08/01/17 08:05 Intake and Output: 08/01/17 08/01/17 06:59 18:59 Intake Total 2930 Balance 2930 - Medications Medications: Current Medications Acetaminophen (Tylenol 325mg Tab) 650 mg PO Q6 PRN PRN Reason: Pain, moderate (4-7) Acetaminophen (Tylenol 325mg Tab) 650 mg PO Q6 PRN PRN Reason: Fever >100.4 F Docusate Sodium (Colace) 100 mg PO BID [facility] Last Admin: 07/31/17 17:47 Dose: Not Given Sodium Chloride (Sodium Chloride 0.9%) 1,000 mls @ 150 mls/hr IV .Q6H40M [facility] Last Admin: 08/01/17 02:30 Dose: Not Given Gentamicin Sulfate 485 mg/ (Sodium Chloride) 262.125 mls @ 125 mls/hr IVPB Q24H [facility] Last Admin: 08/01/17 01:30 Dose: 125 mls/hr Imipenem/Cilastatin Sodium 1, (000 mg/ Sodium Chloride) 250 mls @ 100 mls/hr IVPB Q8H [facility] Last Admin: 08/01/17 07:40 Dose: 100 mls/hr Ondansetron HCl (Zofran Inj) 4 mg IVP Q6 PRN PRN Reason: Nausea/Vomiting Pantoprazole Sodium (Protonix Ec Tab) 40 mg PO DAILY [facility] Last Admin: 07/31/17 09:35 Dose: 40 mg - Labs Labs: 08/01/17 08:27 08/01/17 08:27 - Constitutional Appears: No Acute Distress - Head Exam Head Exam: ATRAUMATIC, NORMOCEPHALIC - Eye Exam Eye Exam: EOMI, Normal appearance - ENT Exam ENT Exam: Mucous Membranes Moist - Respiratory Exam Respiratory Exam: Clear to Ausculation Bilateral. absent: Rales, Rhonchi, Wheezes - Cardiovascular Exam Cardiovascular Exam: REGULAR RHYTHM, +S1, +S2 - GI/Abdominal Exam GI & Abdominal Exam: Soft, Normal Bowel Sounds. absent: Distended, Tenderness - Extremities Exam Extremities Exam: absent: Pedal Edema, Tenderness - Back Exam Back Exam: absent: CVA tenderness (L), CVA tenderness (R) - Neurological Exam Neurological Exam: Alert, Awake, Oriented x3 - Psychiatric Exam Psychiatric exam: Normal Affect, Normal Mood - Skin Skin Exam: Dry, Intact, Normal Color, Warm Assessment and Plan - Assessment and Plan (Free Text) Plan: UTI due to extended-spectrum beta lactamase (ESBL) producing Escherichia coli ID consult, Dr. Higgins, help appreciated Cultures sensitive to Gentamicin (ATA 1) and Tigecycline (ATA <0.5) Gentamycin 485mg IV Q24 Primaxin 1g IV Q8 NS @ 150 cc/hr Repeat UA shows no nitrates or leukocyte esterase F/u blood cultures F/u urine cultures CT abdomen/pelvis w.o. contrast: Mild right perinephric stranding. No obstructing calculus or hydronephrosis identified. Pyelonephritis cannot be excluded on noncontrast study. Moderate constipation. Prophylactic measure Protonix 40 PO QD [facility]CD[facility] Zofran 4 mg IV Q6 prn Colace 100 mg PO BID Discharge pending sensitivity of gram neg rods grown from 07/[address] Case DW [address] Jayshree Van PGY-1
[2017-08-01] MEDS: Pantoprazole 40 mg EC Tab PO SCH (10:42)
[2017-08-01] MEDS: Saccharomyces Boulardi 250 mg Cap PO SCH ×2 (13:30→17:49)
--- NOTE | 2017-08-01 17:37 | CP.PCM.PN ---
Subjective - Date & Time of Evaluation Date of Evaluation: 08/01/17 Time of Evaluation: 09:00 - Subjective Subjective: await ID of urinary pathogen possible po alternative ? genta level ok Objective - Vital Signs/Intake and Output Vital Signs (last 24 hours): Temp Pulse Resp BP Pulse Ox 98.6 F 77 20 100/63 100 08/01/17 16:00 08/01/17 16:00 08/01/17 16:00 08/01/17 16:00 08/01/17 16:00 Intake and Output: 08/01/17 08/01/17 06:59 18:59 Intake Total 2930 1330 Balance 2930 1330 - Medications Medications: Current Medications Acetaminophen (Tylenol 325mg Tab) 650 mg PO Q6 PRN PRN Reason: Pain, moderate (4-7) Acetaminophen (Tylenol 325mg Tab) 650 mg PO Q6 PRN PRN Reason: Fever >100.4 F Docusate Sodium (Colace) 100 mg PO BID [facility] Last Admin: 08/01/17 10:42 Dose: 100 mg Sodium Chloride (Sodium Chloride 0.9%) 1,000 mls @ 150 mls/hr IV .Q6H40M [facility] Last Admin: 08/01/17 10:11 Dose: Not Given Gentamicin Sulfate 485 mg/ (Sodium Chloride) 262.125 mls @ 125 mls/hr IVPB Q24H [facility] Last Admin: 08/01/17 01:30 Dose: 125 mls/hr Imipenem/Cilastatin Sodium 1, (000 mg/ Sodium Chloride) 250 mls @ 100 mls/hr IVPB Q8H [facility] Last Admin: 08/01/17 07:40 Dose: 100 mls/hr Ondansetron HCl (Zofran Inj) 4 mg IVP Q6 PRN PRN Reason: Nausea/Vomiting Pantoprazole Sodium (Protonix Ec Tab) 40 mg PO DAILY [facility] Last Admin: 08/01/17 10:42 Dose: 40 mg Saccharomyces Boulardii (Florastor) 250 mg PO BID [facility] Last Admin: 08/01/17 13:30 Dose: 250 mg - Labs Labs: 08/01/17 08:27 08/01/17 08:27 Assessment and Plan (1) Fever Status: Acute (2) UTI (urinary tract infection) Status: Acute (3) UTI due to extended-spectrum beta lactamase (ESBL) producing Escherichia coli Status: Acute
[2017-08-02 01:05] VITALS: TEMP 98.5; O2SAT 99
[2017-08-02] MEDS: Sodium Chloride 0.9% 1,000 ML IV SCH (06:21)
[2017-08-02 08:14] LABS: BASO % 0.3 % (0.0-2.0); EOS # 0.2 K/uL (0.0-0.7); EOS % 4.3 % (0.0-4.0); HEMOGLOBIN 10.6 g/dL (11.0-16.0); LYMPH % 39.9 % (20.0-40.0); MEAN CELL VOLUME 87.5 fL (81.0-99.0); MEAN CORPUSCULAR HEMOGLOBIN 30.1 pg (27.0-31.0); MEAN CORPUSCULAR HGB CONC 34.4 g/dL (33.0-37.0); MEAN PLATELET VOLUME 10.4 fL (7.2-11.7); MONO # 0.5 K/uL (0.0-0.8); MONO % 10.5 % (0.0-10.0); NEUT # 2.3 K/uL (1.8-7.0); RBC 3.53 Mil/uL (3.80-5.20); RED CELL DISTRIBUTION WIDTH 12.4 % (11.5-14.5); WHITE BLOOD COUNT 5.1 K/uL (4.8-10.8)
[2017-08-02 08:28] VITALS: BP 109/63; PULSE 75
[2017-08-02 08:41] LABS: ALB/GLOB RATIO 1.1 (1.0-2.1); ALBUMIN 3.1 g/dL (3.5-5.0); ALT/SGPT 36 U/L (9-52); AST/SGOT 24 U/L (14-36); BLOOD UREA NITROGEN 7 mg/dL (7-17); CALCIUM 7.9 mg/dl (8.6-10.4); GFR AFRICAN-AMERICAN > 60; GFR NON-AFRICAN AMERICAN > 60
--- NOTE | 2017-08-02 09:11 | CP.PCM.DIS ---
<Tika Gallego - Last Filed: 08/02/17 09:05> Provider - Provider Date of Admission: 07/31/17 16:00 Attending physician: Rocael Kruger MD Primary care physician: Dr. Schmidt Consults: Dr. Higgins - ID Time Spent in preparation of Discharge (in minutes): 35 Diagnosis - Discharge Diagnosis (1) UTI due to extended-spectrum beta lactamase (ESBL) producing Escherichia coli Status: Acute Priority: High Comment: f/u PCP one week. Augmentin PO BID x 5 days. [facility] Course - Lab Results Lab Results: Micro Results 07/30/17 14:13 Blood Blood Culture - Preliminary NO GROWTH AFTER 48 HOURS 07/30/17 11:12 Blood Blood Culture - Preliminary NO GROWTH AFTER 24 HOURS 07/30/17 13:12 Urine,Clean Catch Urine Culture - Final No Growth (<1,000 CFU/ML) 07/29/17 17:29 Urine Urine Culture - Final Gram Negative Clifford Most Recent Lab Values WBC 5.1 K/uL (4.8-10.8) 08/02/17 08:03 RBC 3.53 Mil/uL (3.80-5.20) L 08/02/17 08:03 Hgb 10.6 g/dL (11.0-16.0) L 08/02/17 08:03 Hct 30.9 % (34.0-47.0) L 08/02/17 08:03 MCV 87.5 fL (81.0-99.0) 08/02/17 08:03 MCH 30.1 pg (27.0-31.0) 08/02/17 08:03 MCHC 34.4 g/dL (33.0-37.0) 08/02/17 08:03 RDW 12.4 % (11.5-14.5) 08/02/17 08:03 Plt Count 194 K/uL (130-400) 08/02/17 08:03 MPV 10.4 fL (7.2-11.7) 08/02/17 08:03 Neut % (Auto) 45.0 % (50.0-75.0) L 08/02/17 08:03 Lymph % (Auto) 39.9 % (20.0-40.0) 08/02/17 08:03 Treasure % (Auto) 10.5 % (0.0-10.0) H 08/02/17 08:03 Eos % (Auto) 4.3 % (0.0-4.0) H 08/02/17 08:03 Baso % (Auto) 0.3 % (0.0-2.0) 08/02/17 08:03 Neut # 2.3 K/uL (1.8-7.0) 08/02/17 08:03 Lymph # 2.0 K/uL (1.0-4.3) 08/02/17 08:03 Treasure # 0.5 K/uL (0.0-0.8) 08/02/17 08:03 Eos # 0.2 K/uL (0.0-0.7) 08/02/17 08:03 Baso # 0.0 K/uL (0.0-0.2) 08/02/17 08:03 Neutrophils % (Manual) 84 % (50-75) H 07/29/17 17:39 Lymphocytes % (Manual) 9 % (20-40) L 07/29/17 17:39 Monocytes % (Manual) 7 % (0-10) 07/29/17 17:39 Platelet Estimate Normal (NORMAL) 07/29/17 17:39 Sodium 131 mmol/L (132-148) L 08/02/17 08:03 Potassium 3.9 mmol/L (3.6-5.2) 08/02/17 08:03 Chloride 102 mmol/L (98-107) 08/02/17 08:03 Carbon Dioxide 27 mmol/L (22-30) 08/02/17 08:03 Anion Gap 7 (10-20) L 08/02/17 08:03 BUN 7 mg/dL (7-17) 08/02/17 08:03 Creatinine 0.6 mg/dL (0.7-1.2) L 08/02/17 08:03 Est GFR ( Amer) > 60 08/02/17 08:03 Est GFR (Non-Af Amer) > 60 08/02/17 08:03 Random Glucose 86 mg/dL (65-105) 08/02/17 08:03 Calcium 7.9 mg/dl (8.6-10.4) L 08/02/17 08:03 Total Bilirubin 0.5 mg/dL (0.2-1.3) 08/02/17 08:03 AST 24 U/L (14-36) 08/02/17 08:03 ALT 36 U/L (9-52) 08/02/17 08:03 Alkaline Phosphatase 45 U/L (38-126) 08/02/17 08:03 Total Protein 5.9 g/dL (6.3-8.3) L 08/02/17 08:03 Albumin 3.1 g/dL (3.5-5.0) L 08/02/17 08:03 Globulin 2.8 gm/dL (2.2-3.9) 08/02/17 08:03 Albumin/Globulin Ratio 1.1 (1.0-2.1) 08/02/17 08:03 Urine Color Yellow (YELLOW) 07/30/17 13:21 Urine Clarity Clear (Clear) 07/30/17 13:21 Urine pH 5.0 (5.0-8.0) 07/30/17 13:21 Ur Specific [place] 1.019 (1.003-1.030) 07/30/17 13:21 Urine Protein Negative mg/dL (NEGATIVE) 07/30/17 13:21 Urine Glucose (UA) 1+ mg/dL (Normal) 07/30/17 13:21 Urine Ketones Trace mg/dL (NEGATIVE) 07/30/17 13:21 Urine Blood Negative (NEGATIVE) 07/30/17 13:21 Urine Nitrate Negative (NEGATIVE) 07/30/17 13:21 Urine Bilirubin Negative (NEGATIVE) 07/30/17 13:21 Urine Urobilinogen Normal mg/dL (0.2-1.0) 07/30/17 13:21 Ur Leukocyte Esterase Neg Chay/uL (Negative) 07/30/17 13:21 Urine WBC (Auto) 6 /hpf (0-5) H 07/30/17 13:21 Urine RBC (Auto) 2 /hpf (0-3) 07/30/17 13:21 Ur Squamous Epith Cells 2 /hpf (0-5) 07/30/17 13:21 Urine Bacteria Rare (<OCC) 07/30/17 13:21 Urine HCG, Qual Negative (NEGATIVE) 07/29/17 17:42 Gentamicin Trough < 0.6 ug/mL (0.0-0.9) 07/31/17 22:47 - Hospital Course Hospital Course: On admission: Patient is a 47 year old female with a CC of pain on urination. The dysuria started on Friday of last week. She came to the ED on Friday where they gave her macrobid. Her culture came back today in which it grew ESBL sensitive to gent and tigecycline. The ED called the patient but did she did not answer. She came today because she has been having subjective fevers however her urinary symptoms have improved. She denies any blood in her urine. She complains that it "bothers her along her R. suprapubic area. Denies any back pain. Denies chills or diaphoresis. No chest pain or SOB. During hospital stay: ID, Dr. Higgins, was consulted. Patient's first urine culture on 07/26 showed ESBL positive urine resistant to many antibiotics. Patient was given Gentamicin and Primaxin IV along with a probiotic during her stay. Symptoms resolved. Repeat UA on 07/30 was negative and repeat UA culture from 07/30 showed no growth in the urine. Patient is stable for discharge home. Patient is to follow up with her primary care physician within one week of discharge. If she does not have one patient can call the [facility] to follow up. Patient is to take Augmentin one pill twice a day for 5 days. She is also to take a probiotic (Florastor) while taking Augmentin. Prescriptions were sent to the [facility] on [address] (patient's preferred pharmacy) She is to return to the emergency room if symptoms return. All instructions explained to the patient and she agrees. Discharge Exam - Head Exam Head Exam: ATRAUMATIC, NORMOCEPHALIC - Eye Exam Eye Exam: EOMI, Normal appearance - ENT Exam ENT Exam: Mucous Membranes Moist - Respiratory Exam Respiratory Exam: NORMAL BREATHING PATTERN. absent: Respiratory Distress - Cardiovascular Exam Cardiovascular Exam: REGULAR RHYTHM, +S1, +S2 - GI/Abdominal Exam GI & Abdominal Exam: Normal Bowel Sounds, Soft. absent: Distended, Firm, Guarding, Tenderness - Extremities Exam Extremities exam: normal inspection - Neurological Exam Neurological exam: Alert, CN II-XII Intact, Normal Gait, Oriented x3 - Psychiatric Exam Psychiatric exam: Normal Affect, Normal Mood - Skin Skin Exam: Dry, Intact, Normal Color Discharge Plan - Discharge Medications Prescriptions: Amoxicillin/Clavulanate [Augmentin 875 MG-125 MG] 1 tab PO Q12 5 Days #10 tab Saccharomyces Boulardi [Florastor] 250 mg PO BID #14 cap - Follow Up Plan Condition: STABLE Disposition: HOME/ ROUTINE Instructions: Amoxicillin/Clavulanate Potassium (By mouth), Probiotic (By mouth ), Urinary Tract Infection in Women (DC), Urinary Tract Infection in Men (DC), Dysuria (GEN) Additional Instructions: Patient is stable for discharge home. Patient is to follow up with her primary care physician within one week of discharge. If she does not have one patient can call the [facility] ( to follow up. Patient is to take Augmentin one pill twice a day for 5 days. She is also to take a probiotic (Florastor) while taking Augmentin. Prescriptions were sent to the [facility] on [address] (patient's preferred pharmacy) She is to return to the emergency room if symptoms return. All instructions explained to the patient and she agrees. Referrals: [facility] at [facility] [Outside] Sunil Higgins MD [Staff Provider] - Eliseo Schmidt MD [Staff Provider] - <Vinayak Martell H - Last Filed: 08/02/17 10:47> Provider - Provider Date of Admission: 07/31/17 16:00 Attending physician: Rocael Kruger MD Hospital Course - Lab Results Lab Results: Micro Results 07/30/17 14:13 Blood Blood Culture - Preliminary NO GROWTH AFTER 48 HOURS 07/30/17 11:12 Blood Blood Culture - Preliminary NO GROWTH AFTER 24 HOURS 07/30/17 13:12 Urine,Clean Catch Urine Culture - Final No Growth (<1,000 CFU/ML) 07/29/17 17:29 Urine Urine Culture - Final Gram Negative Clifford Most Recent Lab Values WBC 5.1 K/uL (4.8-10.8) 08/02/17 08:03 RBC 3.53 Mil/uL (3.80-5.20) L 08/02/17 08:03 Hgb 10.6 g/dL (11.0-16.0) L 08/02/17 08:03 Hct 30.9 % (34.0-47.0) L 08/02/17 08:03 MCV 87.5 fL (81.0-99.0) 08/02/17 08:03 MCH 30.1 pg (27.0-31.0) 08/02/17 08:03 MCHC 34.4 g/dL (33.0-37.0) 08/02/17 08:03 RDW 12.4 % (11.5-14.5) 08/02/17 08:03 Plt Count 194 K/uL (130-400) 08/02/17 08:03 MPV 10.4 fL (7.2-11.7) 08/02/17 08:03 Neut % (Auto) 45.0 % (50.0-75.0) L 08/02/17 08:03 Lymph % (Auto) 39.9 % (20.0-40.0) 08/02/17 08:03 Treasure % (Auto) 10.5 % (0.0-10.0) H 08/02/17 08:03 Eos % (Auto) 4.3 % (0.0-4.0) H 08/02/17 08:03 Baso % (Auto) 0.3 % (0.0-2.0) 08/02/17 08:03 Neut # 2.3 K/uL (1.8-7.0) 08/02/17 08:03 Lymph # 2.0 K/uL (1.0-4.3) 08/02/17 08:03 Treasure # 0.5 K/uL (0.0-0.8) 08/02/17 08:03 Eos # 0.2 K/uL (0.0-0.7) 08/02/17 08:03 Baso # 0.0 K/uL (0.0-0.2) 08/02/17 08:03 Neutrophils % (Manual) 84 % (50-75) H 07/29/17 17:39 Lymphocytes % (Manual) 9 % (20-40) L 07/29/17 17:39 Monocytes % (Manual) 7 % (0-10) 07/29/17 17:39 Platelet Estimate Normal (NORMAL) 07/29/17 17:39 Sodium 131 mmol/L (132-148) L 08/02/17 08:03 Potassium 3.9 mmol/L (3.6-5.2) 08/02/17 08:03 Chloride 102 mmol/L (98-107) 08/02/17 08:03 Carbon Dioxide 27 mmol/L (22-30) 08/02/17 08:03 Anion Gap 7 (10-20) L 08/02/17 08:03 BUN 7 mg/dL (7-17) 08/02/17 08:03 Creatinine 0.6 mg/dL (0.7-1.2) L 08/02/17 08:03 Est GFR ( Amer) > 60 08/02/17 08:03 Est GFR (Non-Af Amer) > 60 08/02/17 08:03 Random Glucose 86 mg/dL (65-105) 08/02/17 08:03 Calcium 7.9 mg/dl (8.6-10.4) L 08/02/17 08:03 Total Bilirubin 0.5 mg/dL (0.2-1.3) 08/02/17 08:03 AST 24 U/L (14-36) 08/02/17 08:03 ALT 36 U/L (9-52) 08/02/17 08:03 Alkaline Phosphatase 45 U/L (38-126) 08/02/17 08:03 Total Protein 5.9 g/dL (6.3-8.3) L 08/02/17 08:03 Albumin 3.1 g/dL (3.5-5.0) L 08/02/17 08:03 Globulin 2.8 gm/dL (2.2-3.9) 08/02/17 08:03 Albumin/Globulin Ratio 1.1 (1.0-2.1) 08/02/17 08:03 Urine Color Yellow (YELLOW) 07/30/17 13:21 Urine Clarity Clear (Clear) 07/30/17 13:21 Urine pH 5.0 (5.0-8.0) 07/30/17 13:21 Ur Specific [place] 1.019 (1.003-1.030) 07/30/17 13:21 Urine Protein Negative mg/dL (NEGATIVE) 07/30/17 13:21 Urine Glucose (UA) 1+ mg/dL (Normal) 07/30/17 13:21 Urine Ketones Trace mg/dL (NEGATIVE) 07/30/17 13:21 Urine Blood Negative (NEGATIVE) 07/30/17 13:21 Urine Nitrate Negative (NEGATIVE) 07/30/17 13:21 Urine Bilirubin Negative (NEGATIVE) 07/30/17 13:21 Urine Urobilinogen Normal mg/dL (0.2-1.0) 07/30/17 13:21 Ur Leukocyte Esterase Neg Chay/uL (Negative) 07/30/17 13:21 Urine WBC (Auto) 6 /hpf (0-5) H 07/30/17 13:21 Urine RBC (Auto) 2 /hpf (0-3) 07/30/17 13:21 Ur Squamous Epith Cells 2 /hpf (0-5) 07/30/17 13:21 Urine Bacteria Rare (<OCC) 07/30/17 13:21 Urine HCG, Qual Negative (NEGATIVE) 07/29/17 17:42 Gentamicin Trough < 0.6 ug/mL (0.0-0.9) 07/31/17 22:47 Attending/Attestation - Attestation I have personally seen and examined this patient.: Yes I have fully participated in the care of the patient.: Yes I have reviewed all pertinent clinical information, including history, physical exam and plan: Yes Notes (Text): 08/02/17 10:43 Medical attending: Patient was seen and examined by me as well. Reviewed the above note by the resident and agree with the above. She was again asking us if she could be discharged. She denied abdominal pain, denied also flank pain, denied fevers. She is tolerating diet, denied nausea and denied vomiting. She also denied urinary syptoms when we asked her. So the repeat Urine culture and sensitivity has been negative. As previously mentioned she came on 07/26 and that had ESBL+ Ecoli. The repeat urine culture and sensitivity on 07/30 is negative She also had a CT scan of abdomen and pelvis - this was negative for obstruction or hydronephrosis - it did report minmal perinephric stranding and on exam she never had pain. thank you Vinayak Martell
[2017-08-02] MEDS: Saccharomyces Boulardi 250 mg Cap PO SCH (09:37)
[2017-08-02] MEDS: Pantoprazole 40 mg EC Tab PO SCH (09:37)
== END 2017-08-02 11:18 | disposition home or self-care (01) | DRG 321 ==
LOC: C.ER 16:00 → C.9E 18:08 → C.3T 19:28 → OBSVTOIN 07-31 16:00
PROVIDERS: ADMIT Internal Medicine; ATTEND Internal Medicine
DX: N39.0 Urinary tract infection, site not specified (principal); B96.20 Unspecified Escherichia coli [E. coli] as the cause of diseases classified elsewhere; I10 Essential (primary) hypertension; F32.9 Major depressive disorder, single episode, unspecified; K59.00 Constipation, unspecified